=== PATIENT | male | born 1995 | race Caucasian/White ===

== ENCOUNTER 2017-06-23 17:53 | Emergency (ER) | payer MEDICAID, OTHER ==
[~2017-06-23] VITALS: Ht 172.7 cm; Wt 97.0 kg
[~2017-06-23 17:53] MED LIST: CYCL-1 PO
[2017-06-23 18:02] VITALS: BP 134/72
[2017-06-23] MEDS ORDERED: LIDOcaine 1.5% w/epinephrine 1:200,000 5ml ampul IJ ONE (18:25)
[2017-06-23] MEDS ORDERED: TETanus/Pertussis (Acell)/Diphther VAC/PF (Tdap-Adult) 0.5ml syringe IM ONE (18:25)
[2017-06-23] MEDS ORDERED: HYDROcodone/acetaminophen 5mg/325mg tablet PO ONE (18:50)
== END 2017-06-23 19:07 | disposition home or self-care (01) ==
LOC: ER 17:53
DX: S61.012A Laceration without foreign body of left thumb without damage to nail, initial encounter (principal); Z88.1 Allergy status to other antibiotic agents; Z88.8 Allergy status to other drugs, medicaments and biological substances; W26.0XXA Contact with knife, initial encounter; Y93.89 Activity, other specified; Y92.89 Other specified places as the place of occurrence of the external cause; Y99.8 Other external cause status
CPT/HCPCS: 12002; 90471; 90715; 99283; A6222; J3490

== ENCOUNTER 2017-07-24 15:31 | Emergency (ER) | payer MEDICAID, OTHER ==
[~2017-07-24] VITALS: Ht 177.8 cm; Wt 95.0 kg
[2017-07-24 15:53] VITALS: BP 135/68
[2017-07-24] MEDS ORDERED: CefTRIAXone 1000mg IM Kit (w/lidocaine diluent) IM ONE (16:30)
[2017-07-24] MEDS ORDERED: ondansetron 4mg rapidly disintigrating tab PO ONE (16:30)
[2017-07-24] MEDS ORDERED: metroNIDAZOLE 500mg tablet PO ONE (16:30)
[2017-07-24] MEDS ORDERED: azithromycin 250mg tablet PO ONE (16:30)
[2017-07-24 16:33] LABS: CLARITY,URINE SLIGHTLY CLOUDY (Clear); COLOR,URINE YELLOW (Yellow); GLUCOSE, URINE NEGATIVE (Neg); KETONES,URINE NEGATIVE (Neg); LEUKOCYTE ESTERASE ,URINE NEGATIVE (Neg); NITRITES, URINE NEGATIVE (Neg); OCCULT BLOOD,URINE NEGATIVE (Neg); PROTEIN,URINE NEGATIVE (Neg); UROBILINOGEN,URINE 0.2 E.U/dL (0.2-1.0)
[2017-07-24 16:36] LABS: UA COLLECTION TYPE VOIDED
[2017-07-24 16:50] LABS: BACTERIA,URINE NONE SEEN /HPF (Neg); MUCUS STRANDS NONE SEEN /LPF (Neg); RBC,URINE NONE SEEN /HPF (0-2); WBC,URINE NONE SEEN /HPF (0-4)
[2017-07-24 16:51] LABS: SQUAMOUS EPITHELIAL CELL,UR FEW /LPF (FEW)
== END 2017-07-24 17:46 | disposition home or self-care (01) ==
LOC: ER 15:32
DX: N34.2 Other urethritis (principal); Z88.1 Allergy status to other antibiotic agents
CPT/HCPCS: 36415; 81001; 87491; 87591; 96372; 99284; J0696; J3490

== ENCOUNTER 2021-01-16 15:32 | Emergency (ER) | payer BC, MEDICAID ==
[~2021-01-16] VITALS: Ht 175.3 cm; Wt 75.0 kg
[2021-01-16 15:53] VITALS: BP 101/63
== END 2021-01-16 18:35 | disposition home or self-care (01) ==
LOC: ER 15:33
DX: U07.1 COVID-19 (principal); R05.9 Cough, unspecified; R43.8 Other disturbances of smell and taste; R06.02 Shortness of breath; F17.200 Nicotine dependence, unspecified, uncomplicated; Z98.890 Other specified postprocedural states; Z88.1 Allergy status to other antibiotic agents; Z88.8 Allergy status to other drugs, medicaments and biological substances; Z79.899 Other long term (current) drug therapy
CPT/HCPCS: 87635; 99283; C9803

== ENCOUNTER → 2021-01-24 | Emergency (ER) | payer OTHER | END | disposition left against medical advice (07) | LOC: ER 10:45 | DX: U07.1 COVID-19 (principal); Z53.21 Procedure and treatment not carried out due to patient leaving prior to being seen by health care provider ==

== ENCOUNTER → 2023-03-12 | Emergency (ER) | payer SELFPAY ==
[~2023-03-12] VITALS: Ht 172.7 cm; Wt 68.9 kg
[~2023-03-12] MED LIST changes: +CLIN-97 PO
[2023-03-12 02:05] VITALS: BP 128/93; PULSE 80; RESP 18; TEMP 98.9; O2SAT 99
== END | disposition home or self-care (01) ==
LOC: ER 01:24
DX: K08.89 Other specified disorders of teeth and supporting structures (principal); K02.9 Dental caries, unspecified; Z88.1 Allergy status to other antibiotic agents; Z88.8 Allergy status to other drugs, medicaments and biological substances; Z79.2 Long term (current) use of antibiotics
CPT/HCPCS: 99283

== ENCOUNTER 2023-07-30 14:39 | Emergency (ER) | payer MEDICAID ==
[~2023-07-30] VITALS: Ht 175.3 cm; Wt 70.9 kg
[2023-07-30] MEDS: azithromycin 250mg tablet PO ONE (17:27)
[2023-07-30] MEDS: CefTRIAXone 250MG IM Kit w/LIDOcaine IM ONE (17:28)
[2023-07-30 17:47] VITALS: BP 128/68; PULSE 78; RESP 19; TEMP 98.6; O2SAT 98
== END 2023-07-30 17:48 | disposition home or self-care (01) ==
LOC: ER 14:40
DX: R19.6 Halitosis (principal); F17.200 Nicotine dependence, unspecified, uncomplicated; Z88.1 Allergy status to other antibiotic agents; Z88.8 Allergy status to other drugs, medicaments and biological substances; Z79.2 Long term (current) use of antibiotics; Z79.899 Other long term (current) drug therapy
CPT/HCPCS: 96372; 99283; J0696

== ENCOUNTER 2024-08-31 21:37 | Emergency (ER) | payer MEDICAID ==
[~2024-08-31] VITALS: Ht 175.3 cm; Wt 53.2 kg
[2024-08-31 21:56] VITALS: BP 125/80; PULSE 91; RESP 15; TEMP 98.6; O2SAT 98
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
== END 2024-08-31 22:53 | disposition home or self-care (01) ==
LOC: ER 21:38
DX: Z88.1 Allergy status to other antibiotic agents (principal); T24.101A Burn of first degree of unspecified site of right lower limb, except ankle and foot, initial encounter; X10.2XXA Contact with fats and cooking oils, initial encounter; Y93.G3 Activity, cooking and baking; Y92.89 Other specified places as the place of occurrence of the external cause; Y99.8 Other external cause status
CPT/HCPCS: 99281